=== PATIENT | female | born 1955 | race Caucasian/White ===

== ENCOUNTER 2022-04-20 19:53 | Emergency (ER) | payer OTHER ==
[2022-04-20 20:15] VITALS: BP 140/78; PULSE 87; RESP 20; TEMP 99.1; BMI 36.6
== END 2022-04-20 21:46 | disposition home or self-care (01) ==
LOC: JERFT 19:53
DX: B04 Monkeypox (principal)
CPT/HCPCS: 36415; 87593; 99283-25

== ENCOUNTER 2024-07-31 14:21 | Inpatient (IN) | payer OTHER ==
[2024-07-31] MEDS ORDERED: FAMOTIDINE 20 MG/50 ML IVPB 20 MG/50 ML MG IVPB ONE ×2 (15:04→15:34)
[2024-07-31] MEDS ORDERED: ONDANSETRON 4 MG/2 ML VIAL ONE ×3 (15:04→15:34)
[2024-07-31] MEDS ORDERED: ACETAMINOPHEN INJECTION 100 ML ONE (15:04)
[2024-07-31] MEDS ORDERED: morphine SULFATE 4 MG/ML VIAL ONE ×2 (15:34→18:24)
[2024-07-31] MEDS: SODIUM CHLORIDE 0.9% 1000 ML INFUS.BAG IV ONE (15:54)
[2024-07-31] MEDS: ONDANSETRON 4 MG/2 ML VIAL IVPUSH ONE (15:54)
[2024-07-31] MEDS: ACETAMINOPHEN 1000 MG/100 ML BAG IVPB ONE ×2 (15:54→23:10)
[2024-07-31] MEDS: FAMOTIDINE 20 MG/50 ML IVPB 20 MG/50 ML MG IVPB ONE (15:55)
[2024-07-31] MEDS: morphine SULFATE 4 MG/ML VIAL IVPUSH ONE ×2 (15:55→18:38)
[2024-07-31 16:05] LABS: BASO % 0.3 % (0-2.0); EOS % 0.3 % (0-4.5); HEMATOCRIT 44.4 % (32.4-45.2); HEMOGLOBIN 14.6 GM/dL (10.7-15.3); MCH 30.2 pg (25.7-33.7); MCHC 32.9 g/dl (32.0-36.0); MEAN CELL VOLUME 91.8 fl (80-96); MEAN PLT VOLUME 8.2 fl (7.5-11.1); MONO % 4.2 % (3.8-10.2); NEUT % 77.2 % (42.8-82.8); PLATELET COUNT 280 10^3/uL (134-434); RBC 4.84 M/mm3 (3.60-5.2); RDW 14.9 % (11.6-15.6); WHITE BLOOD COUNT 12.4 K/mm3 (4.0-10.0)
[2024-07-31 16:14] LABS: INR 1.12 (0.83-1.09); PROTHROMBIN TIME (PATIENT) 12.8 SEC (9.7-13.0)
[2024-07-31 16:16] LABS: ACTIVATED PTT 32.1 SECONDS (25.2-36.5)
[2024-07-31 16:27] LABS: POTASSIUM 5.3 mmol/L (3.5-5.1)
[2024-07-31 16:29] LABS: CALCIUM 9.9 mg/dL (8.5-10.1)
[2024-07-31 16:30] LABS: ALBUMIN 4.2 g/dl (3.4-5.0); BLOOD UREA NITROGEN 14.4 mg/dL (7-18)
[2024-07-31 16:33] LABS: CREATININE 0.9 mg/dL (0.55-1.3)
[2024-07-31 16:34] LABS: BILIRUBIN,TOTAL 0.7 mg/dL (0.2-1)
[2024-07-31 16:35] LABS: TOT PROT 8.1 g/dl (6.4-8.2)
[2024-07-31 17:22] LABS: HIV INTERPRETATION NEGATIVE (NEGATIVE)
[2024-07-31] MEDS: SODIUM CHLORIDE 1,000 ML IV SCH (18:38)
[2024-07-31 19:01] LABS: EPI CELLS >36 /uL (0-25.1); HYALINE CASTS 0 /uL (0-3.1); URINE APPEARANCE CLEAR; URINE BACTERIA 1091 /uL (0-1359); URINE BILIRUBIN NEGATIVE (NEGATIVE); URINE COLOR DK YELLOW; URINE GLUCOSE (UA) NEGATIVE (NEGATIVE); URINE KETONE TRACE (NEGATIVE); URINE LEUK ESTERASE NEGATIVE (NEGATIVE); URINE NITRITE NEGATIVE (NEGATIVE); URINE PROTEIN NEGATIVE (NEGATIVE); URINE RBC 104 /uL (0-23.9); URINE UROBILINOGEN 0.2 mg/dL (0.2-1.0); URINE WBC 22 /uL (0-25.8)
[2024-07-31] MEDS: morphine CARPU-JECT 2 MG/1 ML DISP.SYRIN IVPUSH ONE (21:53)
[2024-07-31] MEDS ORDERED: MORPHINE SULFATE 2 MG/ML SYRINGE ONE (21:55)
[2024-07-31] MEDS: ONDANSETRON 4 MG/2 ML VIAL IVPUSH PRN (23:10)
[2024-08-01] MEDS: BUPIVACAINE HCL/PF 0.25% (2.5MG/ML) 10 ML VIAL IJ ONE
[2024-08-01] MEDS: HALOPERIDOL LACTATE 5 MG/ML IM ONE (06:26)
[2024-08-01 10:01] LABS: HEMOGLOBIN 13.3 GM/dL (10.7-15.3); MCH 30.7 pg (25.7-33.7); MCHC 33.1 g/dl (32.0-36.0); MEAN CELL VOLUME 92.6 fl (80-96); PLATELET COUNT 250 10^3/uL (134-434); RBC 4.32 M/mm3 (3.60-5.2); RDW 14.5 % (11.6-15.6); WHITE BLOOD COUNT 7.6 K/mm3 (4.0-10.0)
[2024-08-01] MEDS ORDERED: ONDANSETRON 4 MG/2 ML VIAL IVPUSH PRN ×3 (10:21→17:04)
[2024-08-01] MEDS: ENOXAPARIN NA (PORCINE) 40 MG/0.4 ML DISP.SYRIN SQ SCH (10:36)
[2024-08-01 11:03] LABS: POTASSIUM 3.4 mmol/L (3.5-5.1)
[2024-08-01 11:08] LABS: CALCIUM 9.1 mg/dL (8.5-10.1)
[2024-08-01 11:09] LABS: BLOOD UREA NITROGEN 14.5 mg/dL (7-18)
[2024-08-01 11:12] LABS: CREATININE 0.8 mg/dL (0.55-1.3); PHOSPHOROUS 2.3 mg/dL (2.5-4.9)
[2024-08-01 11:14] LABS: BILIRUBIN,TOTAL 0.7 mg/dL (0.2-1); TOT PROT 7.4 g/dl (6.4-8.2)
[2024-08-01] MEDS: cefOXitin SODIUM 1 GM VIAL (RESTRICTED TO ID) IVPB ONE (13:10)
[2024-08-01] MEDS: KCL 10 MEQ IVPB 10 MEQ/100 ML INFUS.BAG IVPB SCH ×2 (13:22→22:30)
[2024-08-01] MEDS ORDERED: PROPOFOL 20 ML ONE ×2 (14:00→16:11)
[2024-08-01] MEDS ORDERED: LIDOCAINE HCL/PF 2% SDV 5ML VIAL ONE (14:00)
[2024-08-01] MEDS ORDERED: MIDAZOLAM HCL 2 MG/2 ML SINGLE DOSE VIAL ONE (14:01)
[2024-08-01] MEDS ORDERED: ROCURONIUM BROMIDE 50 MG/5 ML SYRINGE ONE (14:01)
[2024-08-01] MEDS ORDERED: SUCCINYLCHOLINE CHLORIDE 200 MG/10 ML SYRINGE ONE (14:01)
[2024-08-01] MEDS ORDERED: INDOCYANINE GREEN 25 MG/10 ML VIAL IVPUSH ONE (14:22)
[2024-08-01] MEDS ORDERED: BUPIVACAINE HCL/PF 0.25% (2.5MG/ML) 10 ML VIAL ONE (14:22)
[2024-08-01] MEDS ORDERED: CEFOXITIN SODIUM 2 GM IVPB ONE (14:23)
[2024-08-01] MEDS ORDERED: HEPARIN NA (PORCINE) 5,000 UNITS/ML 1ML VIAL ONE (14:23)
[2024-08-01] MEDS ORDERED: DEXAMETHASONE SOD PHOSPHATE 4 MG/1 ML VIAL ONE (15:16)
[2024-08-01] MEDS ORDERED: SUGAMMADEX SODIUM 200 MG/2 ML VIAL ONE (16:39)
[2024-08-01] MEDS ORDERED: KETOROLAC TROMETHAMINE 30 MG/1 ML VIAL ONE (16:39)
[2024-08-01] MEDS ORDERED: PROMETHAZINE HCL 25 MG/1 ML VIAL IVPB PRN ×2 (16:41→17:04)
[2024-08-01] MEDS ORDERED: HYDROmorphone HCl 2 MG/ML VIAL IVPUSH PRN ×2 (16:44→17:04)
[2024-08-01] MEDS ORDERED: ACETAMINOPHEN INJECTION 100 ML ONE (16:58)
[2024-08-01] MEDS: ACETAMINOPHEN 1000 MG/100 ML BAG IVPB ONE (17:06)
[2024-08-01] MEDS: HYDROmorphone *PCA* 10MG/50ML DISP.SYRIN PCA SCH (17:15)
[2024-08-01] MEDS: SODIUM CHLORIDE 1,000 ML IV SCH ×2 (17:39→20:40)
[2024-08-01] MEDS: ACETAMINOPHEN 1000 MG/100 ML BAG IVPB SCH (20:50)
[2024-08-02] MEDS: LACTATED RINGERS SOLUTION 1,000 ML IV SCH ×2 (02:39→02:40)
[2024-08-02] MEDS: ONDANSETRON 4 MG/2 ML VIAL IVPUSH PRN (03:06)
[2024-08-02] MEDS: PANTOPRAZOLE SODIUM 40 MG VIAL IVPUSH SCH (10:32)
[2024-08-02] MEDS: ENOXAPARIN NA (PORCINE) 40 MG/0.4 ML DISP.SYRIN SQ SCH (10:32)
[2024-08-02] MEDS: methaDONE HCL 10 MG TABLET PO ONE (12:07)
[2024-08-02 13:38] LABS: BASO % 0.2 % (0-2.0); EOS % 0.1 % (0-4.5); HEMATOCRIT 37.2 % (32.4-45.2); HEMOGLOBIN 12.6 GM/dL (10.7-15.3); LYMPH % 22.9 % (8-40); MCH 31.4 pg (25.7-33.7); MCHC 33.8 g/dl (32.0-36.0); MEAN CELL VOLUME 92.9 fl (80-96); MONO % 8.6 % (3.8-10.2); NEUT % 68.2 % (42.8-82.8); RBC 4.01 M/mm3 (3.60-5.2); RDW 14.7 % (11.6-15.6); WHITE BLOOD COUNT 5.1 K/mm3 (4.0-10.0)
[2024-08-02 13:55] LABS: BLOOD UREA NITROGEN 12.4 mg/dL (7-18); CALCIUM 8.3 mg/dL (8.5-10.1); PLATELET ESTIMATE ADEQUATE
[2024-08-02 13:58] LABS: CREATININE 0.7 mg/dL (0.55-1.3)
[2024-08-02] MEDS: KETOROLAC TROMETHAMINE 30 MG/1 ML VIAL IM PRN (20:41)
[2024-08-02] MEDS: QUEtiapine FUMARATE 200 MG TABLET PO SCH (21:01)
[2024-08-03] MEDS: FLUoxetine HCL 20 MG CAPSULE PO SCH (10:35)
[2024-08-03] MEDS: methaDONE HCL 10 MG TABLET PO ONE (13:11)
[2024-08-03] MEDS: IBUPROFEN 600 MG TABLET (FP) PO PRN (20:28)
[2024-08-03] MEDS: BENZOCAINE/MENTH/CETYLPYRD CL 1 EACH LOZENGE MM PRN (20:40)
[2024-08-04] MEDS: methaDONE HCL 10 MG TABLET PO SCH (09:19)
[2024-08-04] MEDS: oxyCODONE HCL 5 MG TABLET PO PRN (12:47)
[2024-08-04] MEDS: IBUPROFEN 600 MG TABLET (FP) PO SCH (13:54)
[2024-08-04] MEDS: hydrOXYzine PAMOATE 25 MG CAPSULE (FP) PO ONE (16:30)
[2024-08-04] MEDS ORDERED: SIMETHICONE 80 MG TAB.CHEW (FP) PO PRN (17:15)
[2024-08-04] MEDS ORDERED: DOCUSATE SODIUM 100 MG CAPSULE (FP) PO SCH (22:00)
[2024-08-05] MEDS: amLODIPine BESYLATE 5 MG TABLET (FP) PO SCH (11:28)
[2024-08-05] MEDS ORDERED: ONDANSETRON *ODT* 4 MG TABLET SL PRN (15:03)
[2024-08-05] MEDS: ACETAMINOPHEN 500 MG TABLET (FP) PO SCH (16:42)
[2024-08-05] MEDS ORDERED: ONDANSETRON 4 MG/2 ML VIAL IVPUSH PRN (17:56)
[2024-08-05] MEDS ORDERED: ACETAMINOPHEN 1000 MG/100 ML BAG IVPB PRN (17:58)
[2024-08-05] MEDS: TRIMETHOBENZAMIDE HCL 200MG/2ML INJ IM PRN (18:56)
[2024-08-06] MEDS ORDERED: PANTOPRAZOLE 40 MG TABLET PO SCH (10:00)
[2024-08-06] MEDS: PANTOPRAZOLE SODIUM 40 MG VIAL IVPUSH SCH (10:09)
[2024-08-06] MEDS: METHYLNALTREXONE BROMIDE 8 MG/0.4 ML SYRINGE SQ ONE (12:32)
[2024-08-06] MEDS ORDERED: ONDANSETRON 4 MG/2 ML VIAL IVPUSH PRN (16:41)
[2024-08-06] MEDS: ACETAMINOPHEN 325 MG TABLET (FP) PO PRN (17:00)
[2024-08-06] MEDS: DEXTROSE 5%-LACTATED RINGERS 1,000 ML IV SCH (17:23)
[2024-08-07] MEDS: PANTOPRAZOLE 40 MG TABLET PO SCH (11:59)
[2024-08-07] MEDS: amLODIPine BESYLATE 5 MG TABLET (FP) PO ONE (11:59)
[2024-08-07] MEDS: DOCUSATE SODIUM 100 MG CAPSULE (FP) PO PRN (14:11)
[2024-08-07] MEDS: ALPRAZolam 0.25 MG TABLET PO ONE (15:03)
[2024-08-07] MEDS: SODIUM CHLORIDE 1,000 ML IV STA (17:53)
[2024-08-07 18:04] LABS: HEMATOCRIT 37.3 % (32.4-45.2); HEMOGLOBIN 12.1 GM/dL (10.7-15.3); MCH 29.8 pg (25.7-33.7); MCHC 32.5 g/dl (32.0-36.0); MEAN CELL VOLUME 91.7 fl (80-96); MEAN PLT VOLUME 8.1 fl (7.5-11.1); PLATELET COUNT 313 10^3/uL (134-434); RBC 4.07 M/mm3 (3.60-5.2); RDW 14.8 % (11.6-15.6); WHITE BLOOD COUNT 9.1 K/mm3 (4.0-10.0)
[2024-08-07 18:34] LABS: CHLORIDE 114 mmol/L (98-107); SODIUM 146 mmol/L (136-145)
[2024-08-07 18:36] LABS: CALCIUM 7.7 mg/dL (8.5-10.1); POTASSIUM 2.7 mmol/L (3.5-5.1)
[2024-08-07 18:37] LABS: ANION GAP 11 mmol/L (4-13); BLOOD UREA NITROGEN 9.3 mg/dL (7-18); CO2 22 mmol/L (21-32); GLUCOSE,RANDOM 80 mg/dL (74-106); MAGNESIUM 1.5 mg/dL (1.8-2.4)
[2024-08-07 18:39] LABS: ANISOCYTOSIS 1+; MACROCYTOSIS 0; TARGET CELLS 2+
[2024-08-07 18:40] LABS: CREATININE 0.5 mg/dL (0.55-1.3); PHOSPHOROUS 2.8 mg/dL (2.5-4.9); SGOT/AST 23 U/L (15-37); SGPT/ALT 35 U/L (13-61)
[2024-08-07 18:41] LABS: BILIRUBIN,TOTAL 0.5 mg/dL (0.2-1)
[2024-08-07 18:43] LABS: ALK PHOS 94 U/L (45-117)
[2024-08-07] MEDS: DEXTROSE 5%-LACTATED RINGERS 1,000 ML IV SCH (18:43)
[2024-08-07 18:45] LABS: ALBUMIN 2.6 g/dl (3.4-5.0); TOT PROT 5.3 g/dl (6.4-8.2)
[2024-08-07] MEDS: KCL 10 MEQ IVPB 10 MEQ/100 ML INFUS.BAG IVPB SCH (19:53)
[2024-08-07] MEDS: POTASSIUM CHLORIDE ORAL LIQUID 20 MEQ/15 ML PO ONE (19:53)
[2024-08-07] MEDS ORDERED: DEXTROSE 5%-LACTATED RINGERS 980 ML with POTASSIUM CHLORIDE 40 MEQ IV SCH (20:15)
[2024-08-07] MEDS: MAGNESIUM 2GM/50ML STERILE WATER IVPB IVPB ONE (21:00)
[2024-08-07] MEDS: DEXTROSE 5%-LACTATED RINGERS 980 ML with POTASSIUM CHLORIDE 40 MEQ IV SCH (21:00)
[2024-08-08] MEDS: ACETAMINOPHEN 1000 MG/100 ML BAG IVPB ONE (01:14)
[2024-08-08 06:43] LABS: HEMATOCRIT 34.2 % (32.4-45.2); HEMOGLOBIN 11.2 GM/dL (10.7-15.3); MCH 30.2 pg (25.7-33.7); MCHC 32.8 g/dl (32.0-36.0); MEAN CELL VOLUME 92.1 fl (80-96); MEAN PLT VOLUME 8.3 fl (7.5-11.1); PLATELET COUNT 291 10^3/uL (134-434); RBC 3.71 M/mm3 (3.60-5.2); RDW 14.3 % (11.6-15.6); WHITE BLOOD COUNT 7.2 K/mm3 (4.0-10.0)
[2024-08-08] MEDS: ONDANSETRON 4 MG/2 ML VIAL IVPUSH PRN (06:59)
[2024-08-08 07:03] LABS: POTASSIUM 3.9 mmol/L (3.5-5.1)
[2024-08-08 07:05] LABS: ALBUMIN 2.9 g/dl (3.4-5.0); BLOOD UREA NITROGEN 8.9 mg/dL (7-18); CALCIUM 8.6 mg/dL (8.5-10.1)
[2024-08-08 07:09] LABS: CREATININE 0.6 mg/dL (0.55-1.3); PHOSPHOROUS 2.4 mg/dL (2.5-4.9)
[2024-08-08 07:10] LABS: BILIRUBIN,TOTAL 0.5 mg/dL (0.2-1); TOT PROT 5.9 g/dl (6.4-8.2)
[2024-08-08 09:18] LABS: ANISOCYTOSIS 0; HELMET CELLS 0; HOWELL-JOLLY BODIES 0; MACROCYTOSIS 0; OVALOCYTE 0; ROULEAU 0; SICKELED CELLS 0; TARGET CELLS 0; TEAR DROP CELLS 0; TOXIC GRANULATION 0
[2024-08-08] MEDS: amLODIPine BESYLATE 10 MG TABLET (FP) PO SCH (09:44)
[2024-08-08] MEDS: METHYLNALTREXONE BROMIDE 8 MG/0.4 ML SYRINGE SQ ONE (09:44)
[2024-08-08] MEDS: NAPH,MB-DB/K PH,MBDB POWDER PACKET PO ONE (10:08)
[2024-08-08] MEDS: LACTATED RINGERS SOLUTION 1,000 ML/1,000 ML INFUS.BAG IV SCH (13:43)
[2024-08-08] MEDS ORDERED: hydrOXYzine PAMOATE 50 MG CAPSULE (FP) PO PRN (18:57)
[2024-08-08] MEDS: hydrOXYzine PAMOATE 25 MG CAPSULE (FP) PO PRN (19:07)
[2024-08-09] MEDS: ACETAMINOPHEN 1000 MG/100 ML BAG IV ONE (02:15)
[2024-08-09 08:35] LABS: POTASSIUM 3.4 mmol/L (3.5-5.1)
[2024-08-09 08:38] LABS: ALBUMIN 2.8 g/dl (3.4-5.0); BLOOD UREA NITROGEN 8.8 mg/dL (7-18); CALCIUM 8.7 mg/dL (8.5-10.1); MAGNESIUM 1.6 mg/dL (1.8-2.4)
[2024-08-09 08:41] LABS: BASO % 0.2 % (0-2.0); CREATININE 0.6 mg/dL (0.55-1.3); EOS % 0.1 % (0-4.5); HEMATOCRIT 33.1 % (32.4-45.2); HEMOGLOBIN 10.7 GM/dL (10.7-15.3); LYMPH % 9.2 % (8-40); MCHC 32.2 g/dl (32.0-36.0); MEAN CELL VOLUME 93.1 fl (80-96); MEAN PLT VOLUME 8.5 fl (7.5-11.1); MONO % 5.7 % (3.8-10.2); NEUT % 84.8 % (42.8-82.8); PLATELET COUNT 278 10^3/uL (134-434); RBC 3.56 M/mm3 (3.60-5.2); RDW 14.7 % (11.6-15.6)
[2024-08-09 08:44] LABS: BILIRUBIN,TOTAL 0.7 mg/dL (0.2-1); TOT PROT 5.6 g/dl (6.4-8.2)
[2024-08-09] MEDS: ACETAMINOPHEN 1000 MG/100 ML BAG IVPB ONE (11:01)
[2024-08-09] MEDS: MAGNESIUM SULFATE IN WATER 2 GM/50 ML IVPB IVPB ONE (13:59)
[2024-08-09] MEDS: KCL 10 MEQ IVPB 10 MEQ/100 ML INFUS.BAG IVPB SCH ×2 (14:56→17:31)
[2024-08-09] MEDS: MAGNESIUM 2GM/50ML STERILE WATER IVPB IVPB ONE (16:18)
[2024-08-09] MEDS ORDERED: LACTATED RINGERS SOLUTION 1,000 ML/1,000 ML INFUS.BAG IV SCH (16:48)
[2024-08-09] MEDS: POTASSIUM CHLORIDE 20 MEQ in AMINO ACIDS 4.25%/D5W 1,000 ML IV SCH (18:42)
[2024-08-10 09:44] LABS: BASO % 0.1 % (0-2.0); EOS % 0.3 % (0-4.5); HEMATOCRIT 33.3 % (32.4-45.2); HEMOGLOBIN 10.5 GM/dL (10.7-15.3); LYMPH % 12.6 % (8-40); MCH 29.6 pg (25.7-33.7); MCHC 31.5 g/dl (32.0-36.0); MONO % 5.9 % (3.8-10.2); NEUT % 81.1 % (42.8-82.8); PLATELET COUNT 266 10^3/uL (134-434); RBC 3.55 M/mm3 (3.60-5.2); RDW 14.9 % (11.6-15.6); WHITE BLOOD COUNT 12.1 K/mm3 (4.0-10.0)
[2024-08-10] MEDS: IOHEXOL (OMNIPAQUE IV) 350 MG/ML - 100 ML BOTTLE PO ONE (09:52)
[2024-08-10 10:08] LABS: POTASSIUM 3.4 mmol/L (3.5-5.1)
[2024-08-10 10:10] LABS: ALBUMIN 2.8 g/dl (3.4-5.0)
[2024-08-10 10:12] LABS: BLOOD UREA NITROGEN 12.2 mg/dL (7-18)
[2024-08-10 10:14] LABS: CREATININE 0.7 mg/dL (0.55-1.3)
[2024-08-10 10:15] LABS: PHOSPHOROUS 2.6 mg/dL (2.5-4.9); TOT PROT 6.1 g/dl (6.4-8.2)
[2024-08-10 10:17] LABS: BILIRUBIN,TOTAL 0.5 mg/dL (0.2-1)
[2024-08-10] MEDS: LACTATED RINGERS SOLUTION 1,000 ML/1,000 ML INFUS.BAG IV SCH (12:55)
[2024-08-10 13:14] VITALS: BMI 29.3
[2024-08-10] MEDS ORDERED: ACETAMINOPHEN 1000 MG/100 ML BAG IVPB PRN (13:22)
[2024-08-10] MEDS ORDERED: KCL 10 MEQ IVPB 10 MEQ/100 ML INFUS.BAG IVPB SCH (13:30)
[2024-08-10] MEDS: POTASSIUM CHLORIDE 20 MEQ in AMINO ACIDS 4.25%/D5W 1,000 ML IV SCH (16:22)
[2024-08-10] MEDS: POTASSIUM PHOSPHATE 15 MM in SODIUM CHLORIDE 250 ML IVPB ONE (16:38)
[2024-08-10] MEDS: FAT EMULSION/OLIVE/SOY/PHOSPHO 250 ML IV SCH (21:22)
[2024-08-10] MEDS ORDERED: FAT EMULSION/OLIVE/SOY (CLINOLIPID) 250 ML EMULSION IV SCH (22:00)
[2024-08-11 11:17] LABS: BASO % 0.2 % (0-2.0); EOS % 0.4 % (0-4.5); HEMATOCRIT 32.2 % (32.4-45.2); HEMOGLOBIN 10.4 GM/dL (10.7-15.3); MCH 29.8 pg (25.7-33.7); MCHC 32.2 g/dl (32.0-36.0); MEAN CELL VOLUME 92.6 fl (80-96); MEAN PLT VOLUME 8.1 fl (7.5-11.1); MONO % 4.4 % (3.8-10.2); PLATELET COUNT 310 10^3/uL (134-434); RBC 3.47 M/mm3 (3.60-5.2); RDW 14.9 % (11.6-15.6); WHITE BLOOD COUNT 13.4 K/mm3 (4.0-10.0)
[2024-08-11 11:38] LABS: POTASSIUM 3.5 mmol/L (3.5-5.1)
[2024-08-11 11:40] LABS: BLOOD UREA NITROGEN 15.5 mg/dL (7-18); CALCIUM 9.3 mg/dL (8.5-10.1)
[2024-08-11 11:43] LABS: CREATININE 0.6 mg/dL (0.55-1.3)
[2024-08-11 11:44] LABS: PHOSPHOROUS 2.9 mg/dL (2.5-4.9)
[2024-08-11 11:45] LABS: BILIRUBIN,TOTAL 0.6 mg/dL (0.2-1); TOT PROT 6.9 g/dl (6.4-8.2)
[2024-08-11] MEDS: ACETAMINOPHEN 1000 MG/100 ML BAG IVPB ONE (20:00)
[2024-08-12 08:57] LABS: POTASSIUM 3.8 mmol/L (3.5-5.1)
[2024-08-12 08:58] LABS: BASO % 0.5 % (0-2.0); EOS % 1.2 % (0-4.5); HEMATOCRIT 34.6 % (32.4-45.2); HEMOGLOBIN 11.2 GM/dL (10.7-15.3); LYMPH % 19.3 % (8-40); MCH 30.3 pg (25.7-33.7); MCHC 32.3 g/dl (32.0-36.0); MEAN CELL VOLUME 93.8 fl (80-96); MEAN PLT VOLUME 8.2 fl (7.5-11.1); MONO % 6.4 % (3.8-10.2); NEUT % 72.6 % (42.8-82.8); PLATELET COUNT 357 10^3/uL (134-434); RBC 3.69 M/mm3 (3.60-5.2); RDW 14.7 % (11.6-15.6); WHITE BLOOD COUNT 10.7 K/mm3 (4.0-10.0)
[2024-08-12 09:04] LABS: ALBUMIN 2.9 g/dl (3.4-5.0); CALCIUM 9.3 mg/dL (8.5-10.1)
[2024-08-12 09:05] LABS: BLOOD UREA NITROGEN 20.3 mg/dL (7-18); MAGNESIUM 1.8 mg/dL (1.8-2.4)
[2024-08-12 09:08] LABS: CREATININE 0.7 mg/dL (0.55-1.3); PHOSPHOROUS 3.2 mg/dL (2.5-4.9)
[2024-08-12 09:09] LABS: BILIRUBIN,TOTAL 0.7 mg/dL (0.2-1); TOT PROT 6.4 g/dl (6.4-8.2)
[2024-08-12] MEDS: POTASSIUM CHLORIDE 20 MEQ in AMINO ACIDS 4.25%/D5W 1,000 ML IV SCH (22:58)
[2024-08-13 09:06] LABS: HEMATOCRIT 34.6 % (32.4-45.2); HEMOGLOBIN 11.2 GM/dL (10.7-15.3); MCH 30.3 pg (25.7-33.7); MCHC 32.4 g/dl (32.0-36.0); MEAN CELL VOLUME 93.4 fl (80-96); MEAN PLT VOLUME 8.2 fl (7.5-11.1); PLATELET COUNT 388 10^3/uL (134-434); WHITE BLOOD COUNT 8.8 K/mm3 (4.0-10.0)
[2024-08-13 09:09] LABS: POTASSIUM 3.9 mmol/L (3.5-5.1)
[2024-08-13 09:12] LABS: ALBUMIN 2.9 g/dl (3.4-5.0); CALCIUM 9.2 mg/dL (8.5-10.1); MAGNESIUM 1.9 mg/dL (1.8-2.4)
[2024-08-13 09:13] LABS: BLOOD UREA NITROGEN 20.5 mg/dL (7-18)
[2024-08-13 09:15] LABS: CREATININE 0.8 mg/dL (0.55-1.3)
[2024-08-13 09:17] LABS: PHOSPHOROUS 3.9 mg/dL (2.5-4.9); TOT PROT 6.5 g/dl (6.4-8.2)
[2024-08-13 09:18] LABS: BILIRUBIN,TOTAL 0.6 mg/dL (0.2-1)
[2024-08-13] MEDS: POTASSIUM CHLORIDE 20 MEQ in AMINO ACIDS 4.25%/D5W 1,000 ML IV SCH (14:03)
[2024-08-14 09:09] LABS: HEMATOCRIT 36.6 % (32.4-45.2); HEMOGLOBIN 11.7 GM/dL (10.7-15.3); MCH 29.8 pg (25.7-33.7); MCHC 31.8 g/dl (32.0-36.0); MEAN CELL VOLUME 93.6 fl (80-96); MEAN PLT VOLUME 8.1 fl (7.5-11.1); PLATELET COUNT 432 10^3/uL (134-434); RBC 3.91 M/mm3 (3.60-5.2); RDW 14.9 % (11.6-15.6); WHITE BLOOD COUNT 7.7 K/mm3 (4.0-10.0)
[2024-08-14 09:24] LABS: POTASSIUM 3.9 mmol/L (3.5-5.1)
[2024-08-14 09:27] LABS: ALBUMIN 3.1 g/dl (3.4-5.0); BLOOD UREA NITROGEN 25.2 mg/dL (7-18); CALCIUM 9.6 mg/dL (8.5-10.1); MAGNESIUM 1.8 mg/dL (1.8-2.4)
[2024-08-14 09:30] LABS: CREATININE 0.8 mg/dL (0.55-1.3); PHOSPHOROUS 3.2 mg/dL (2.5-4.9)
[2024-08-14 09:32] LABS: BILIRUBIN,TOTAL 0.7 mg/dL (0.2-1)
[2024-08-14] MEDS ORDERED: IBUPROFEN 600 MG TABLET (FP) PO PRN (17:09)
[2024-08-15 06:28] LABS: HEMATOCRIT 34.5 % (32.4-45.2); HEMOGLOBIN 11.5 GM/dL (10.7-15.3); MCH 31.1 pg (25.7-33.7); MCHC 33.3 g/dl (32.0-36.0); MEAN CELL VOLUME 93.3 fl (80-96); MEAN PLT VOLUME 8.2 fl (7.5-11.1); PLATELET COUNT 416 10^3/uL (134-434); RDW 14.8 % (11.6-15.6); WHITE BLOOD COUNT 7.5 K/mm3 (4.0-10.0)
[2024-08-15 06:44] LABS: POTASSIUM 3.8 mmol/L (3.5-5.1)
[2024-08-15 06:47] LABS: CALCIUM 9.5 mg/dL (8.5-10.1)
[2024-08-15 06:48] LABS: ALBUMIN 3.1 g/dl (3.4-5.0); BLOOD UREA NITROGEN 22.5 mg/dL (7-18); MAGNESIUM 1.7 mg/dL (1.8-2.4)
[2024-08-15 06:51] LABS: CREATININE 0.8 mg/dL (0.55-1.3)
[2024-08-15 06:52] LABS: PHOSPHOROUS 3.2 mg/dL (2.5-4.9)
[2024-08-15 06:53] LABS: BILIRUBIN,TOTAL 0.8 mg/dL (0.2-1); TOT PROT 6.6 g/dl (6.4-8.2)
[2024-08-15] MEDS: ONDANSETRON 4 MG TABLET PO SCH (11:26)
[2024-08-15 11:44] VITALS: RESP 20
[2024-08-15] MEDS: VANCOMYCIN ORAL SOLUTION 125 MG/2.5 ML PO SCH (17:52)
[2024-08-15] MEDS: MAGNESIUM 1GM/D5W - 1 GM/100 ML IVPB IVPB ONE (19:41)
[2024-08-16 06:34] VITALS: PULSE 100
[2024-08-16 11:50] VITALS: BP 131/73; TEMP 97.3
== END 2024-08-16 17:15 | disposition home or self-care (01) | DRG 336 ==
LOC: JER 14:21 → JERBED 18:54 → J6S 23:00
PROVIDERS: ADMIT Internal Medicine; ATTEND Internal Medicine
PROC: 0WJG0ZZ Inspection of Peritoneal Cavity, Open Approach (ICD-10-PCS; 2024-08-01)
PROC: 0DN80ZZ Release Small Intestine, Open Approach (ICD-10-PCS; 2024-08-01)
PROC: 0DNF0ZZ Release Right Large Intestine, Open Approach (ICD-10-PCS; 2024-08-01)
PROC: 0DNW0ZZ Release Peritoneum, Open Approach (ICD-10-PCS; principal; 2024-08-01 13:34)
DX: K56.50 Intestinal adhesions [bands], unspecified as to partial versus complete obstruction (principal); E46 Unspecified protein-calorie malnutrition; F11.20 Opioid dependence, uncomplicated; K91.89 Other postprocedural complications and disorders of digestive system; I10 Essential (primary) hypertension; R63.4 Abnormal weight loss; D72.829 Elevated white blood cell count, unspecified; R14.0 Abdominal distension (gaseous); R10.13 Epigastric pain; E87.5 Hyperkalemia; R11.10 Vomiting, unspecified; K56.7 Ileus, unspecified; Y83.9 Surgical procedure, unspecified as the cause of abnormal reaction of the patient, or of later complication, without mention of misadventure at the time of the procedure; E83.39 Other disorders of phosphorus metabolism; E83.42 Hypomagnesemia; F17.210 Nicotine dependence, cigarettes, uncomplicated; R16.0 Hepatomegaly, not elsewhere classified; H00.019 Hordeolum externum unspecified eye, unspecified eyelid; F31.9 Bipolar disorder, unspecified
CPT/HCPCS: 36415; 71045-TC-FY; 74018-TC-FY; 74019-TC-FY; 74176-TC; 76705-TC; 80048; 80053; 80061; 81003; 82962; 83605; 83690; 83735; 84100; 84439; 84443; 84484; 85025; 85027; 85610; 85730; 86803; 86850; 86900; 86901; 87086; 87324; 87389; 87449; 87493; 87522; 93005; 93010; 93971-TC; 94760; 97116-GP; 97162-GP; 99285-25; J0131; J1644

== ENCOUNTER 2025-06-05 19:41 | Emergency (ER) | payer OTHER ==
[2025-06-05 20:05] VITALS: BP 129/57; PULSE 96; RESP 22; TEMP 99.5; BMI 31.9
[2025-06-05] MEDS ORDERED: ALBUTEROL SO4 2.5/IPRATROPIUM 0.5 INH SOL 3 ML VIAL.NEB. NEB ONE (20:41)
[2025-06-05] MEDS ORDERED: methylPREDNISolone NA SUCC 125 MG/2 ML VIAL ONE (20:50)
[2025-06-05] MEDS ORDERED: ACETAMINOPHEN INJECTION 100 ML ONE (20:50)
[2025-06-05] MEDS: ALBUTEROL SO4 2.5/IPRATROPIUM 0.5 INH SOL 3 ML VIAL.NEB. NEB SCH (21:16)
[2025-06-05] MEDS: methylPREDNISolone NA SUCC 125 MG/2 ML VIAL IVPUSH ONE (21:18)
[2025-06-05] MEDS: ACETAMINOPHEN 1000 MG/100 ML BAG IVPB ONE (21:19)
[2025-06-05 21:21] LABS: ABSOLUTE IMMATURE GRANULOCYTES 0.08 x10^3/uL (0.0-0.031); BASOPHILS # 0.03 x10^3/uL (0.01-0.08); EOSINOPHIL % 0.2 % (0.7-5.8); EOSINOPHILS # 0.03 x10^3/uL (0.04-0.36); MCHC 33.1 g/dl (32.2-35.5); MEAN CELL VOLUME 92.4 fl (79.4-94.8); MEAN PLT VOLUME 11.5 fl (9.4-12.3); MONOCYTE # 0.67 x10^3/uL (0.24-0.86); MONOCYTE % 4.8 % (4.7-12.5); RDW 14.5 % (12.4-16.4)
[2025-06-05] MEDS: ACETAMINOPHEN 325 MG TABLET (FP) PO ONE (21:25)
[2025-06-05 21:41] LABS: BG HCT 43.0 % (32.4-45.2); VENOUS BASE EXCESS -1.7 mmol/L (-2-2); VENOUS O2 SATURATION 93.8 % (70-80); VENOUS PCO2 36.2 mmHg (38-52); VENOUS PH 7.409 (7.310-7.410)
[2025-06-05 21:56] LABS: GLUCOSE,RANDOM 97.0 mg/dL (74-106); TOT PROT 7.3 g/dl (6.4-8.2)
[2025-06-05 21:57] LABS: CO2 20.0 mmol/L (21-32)
[2025-06-05 21:59] LABS: ALK PHOS 116.0 U/L (40-150)
[2025-06-05 22:01] LABS: SGOT/AST 39.0 U/L (5-34); SGPT/ALT 21.0 U/L (0-55)
[2025-06-05 22:02] LABS: CREATININE 0.8 mg/dL (0.55-1.3)
[2025-06-05 23:15] LABS: HIV INTERPRETATION NEGATIVE (NEGATIVE)
[2025-06-05 23:16] LABS: HCV DIAGNOSTIC IN-HOUSE W/RFLX REACTIVE (NONREACTIVE)
== END 2025-06-05 22:37 | disposition home or self-care (01) ==
LOC: JER 19:41
PROC: 3E033NZ Introduction of Analgesics, Hypnotics, Sedatives into Peripheral Vein, Percutaneous Approach (ICD-10-PCS; principal; 2025-06-05)
PROC: 3E033NZ Introduction of Analgesics, Hypnotics, Sedatives into Peripheral Vein, Percutaneous Approach (ICD-10-PCS; 2025-06-05)
PROC: 3E0F7GC Introduction of Other Therapeutic Substance into Respiratory Tract, Via Natural or Artificial Opening (ICD-10-PCS; 2025-06-05)
DX: J44.1 Chronic obstructive pulmonary disease with (acute) exacerbation (principal); R05.9 Cough, unspecified; R06.2 Wheezing; R07.89 Other chest pain; R51.9 Headache, unspecified; R00.0 Tachycardia, unspecified
CPT/HCPCS: 36415; 71045-TC-FY; 80053; 82803; 83735; 84484; 85025; 86803; 87389; 87522; 87637-QW; 93005; 93010; 99285-25